=== PATIENT | male | born 1965 | race Caucasian/White ===

== ENCOUNTER 2020-03-23 14:50 | Emergency (ER) | payer BC ==
--- NOTE | 2020-03-23 16:05 | EDM.PDOC ---
ED HPI GENERAL MEDICAL PROBLEM - General Chief Complaint: General Stated Complaint: DIZZY AND WEAK Time Seen by Provider: 03/23/20 15:39 Source of Information: Reports: Patient, RN Notes Reviewed History Limitations: Reports: No Limitations - History of Present Illness INITIAL COMMENTS - FREE TEXT/NARRATIVE: Patient is a 55-year-old male who presents to the ED for evaluation of feeling weak and dizzy. Patient notes earlier today, he was mowing the yard at work, outside when he began to feel dizzy and weak, he states that the sun kind of seem to bother him, felt somewhat fatigued. He would characterize the dizziness as a lightheadedness more than a world spinning around him dizziness. The patient states that he was feeling fine up until these episodes. He did not hav e any sort of syncopal episode he is not having pain anywhere. Patient notes he did have a history of this many years ago, and he thinks that they adjusted some sort of medication and then he is not experienced this since then. Patient states that he is trying to lose a little bit of weight, so is changing his diet and exercise habits, and was wondering if this could have something to do with it as well. Blood pressure at time of triage mildly low at 105/66, he is afebrile at 98.0 F, O2 sats are slightly low, but he states he is a smoker and also has COPD. Patient is slightly tachycardic at 105 bpm at triage, and 101 on the EKG. - Related Data Allergies Allergy/AdvReac Type Severity Reaction Status Date / Time No Known Allergies Allergy Verified 03/23/20 15:36 Home Meds: Home Meds Lisinopril 0 mg PO DAILY 07/30/14 [History] Omeprazole [Prilosec] 20 mg PO DAILY 07/30/14 [History] Albuterol Sulfate [Proair Hfa] 8.5 gm IH 08/18/18 [History] Hydrocodone/Acetaminophen [Hydrocodone-Acetamin 5-325 mg] 1 - 2 each PO Q6HR PRN #20 tablet 08/18/18 [Rx] Penicillin V Potassium 500 mg PO Q6HR #40 tab 08/18/18 [Rx] Pravastatin [Pravachol] 20 mg PO DAILY 08/18/18 [History] Tiotropium [Spiriva] 18 mcg INH BID 08/18/18 [History] amLODIPine [Norvasc] 2.5 mg PO 08/18/18 [History] metFORMIN [Glucophage XR] 1,000 mg PO BIDMEALS 08/18/18 [History] Past Medical History Cardiovascular History: Reports: High Cholesterol, Hypertension, Other (See Below) Other Cardiovascular History: svt Respiratory History: Reports: Asthma, Bronchitis, Recurrent, COPD, Other (See Below) Other Respiratory History: emphysema Gastrointestinal History: Reports: GERD, Other (See Below) Other Gastrointestinal History: hernia Endocrine/Metabolic History: Reports: Diabetes, Type II Social & Family History - Family History Family Medical History: Noncontributory - Tobacco Use Smoking Status *Q: Current Every Day Smoker Years of Tobacco use: 44 Packs/Tins Daily: 1.5 - Caffeine Use Caffeine Use: Reports: Energy Drinks - Recreational Drug Use Recreational Drug Use: No ED ROS GENERAL - Review of Systems Review Of Systems: Comprehensive ROS is negative, except as noted in HPI. ED EXAM, GENERAL - Physical Exam Exam: See Below Exam Limited By: No Limitations General Appearance: Alert, WD/WN, No Apparent Distress Respiratory/Chest: No Respiratory Distress, Lungs Clear, Normal Breath Sounds, No Accessory Muscle Use, Chest Non-Tender Cardiovascular: Normal Peripheral Pulses, Regular Rate, Rhythm, No Edema, No Murmur Peripheral Pulses: 2+: Radial (L), Radial (R) GI/Abdominal: Normal Bowel Sounds, Soft, Non-Tender, No Distention, No Mass Extremities: Normal Inspection, Normal Capillary Refill Neurological: Alert, Oriented, Normal Cognition, No Motor/Sensory Deficits Psychiatric: Normal Affect, Normal Mood Skin Exam: Warm, Dry, Intact, Normal Color, No Rash EKG INTERPRETATION EKG Date: 03/23/20 Time: 15:26 Rhythm: NSR (sinus tachycardia) Rate (Beats/Min): 101 Hughes: Normal P-Wave: Present QRS: Normal ST-T: Normal QT: Normal Comparison: No Change EKG Interpretation Comments: No obvious ischemia or acute ST changes noted, reviewed by myself and Dr. Frances. Course - Vital Signs Last Recorded V/S: Last Vital Signs Temp 98.0 F 03/23/20 15:30 Pulse 105 H 03/23/20 15:30 Resp 18 03/23/20 15:30 BP 105/66 03/23/20 15:30 Pulse Ox 94 L 03/23/20 15:30 Orthostatic Blood Pressure [ 98/72 Standing] Orthostatic Blood Pressure [ 119/80 Sitting] Orthostatic Blood Pressure [ 111/79 Supine] - Orders/Labs/Meds Orders: Active Orders 24 hr Category Date Time Status EKG 12 Lead [EKG Documentation Completion] [RC] STAT Care 03/23/20 15:39 Active Orthostatic Vital Signs [RC] ASDIRECTED Care 03/23/20 15:55 Active CBC WITH AUTO DIFF [HEME] Stat Lab 03/23/20 16:05 Results Labs: Laboratory Tests 03/23/20 03/23/20 03/23/20 Range/Units 15:28 16:05 16:05 WBC 11.54 H (4.23-9.07) K/mm3 RBC 4.87 (4.63-6.08) M/mm3 Hgb 14.2 (13.7-17.5) gm/dl Hct 42.3 (40.1-51.0) % MCV 86.9 (79.0-92.2) fl MCH 29.2 (25.7-32.2) pg MCHC 33.6 (32.2-35.5) g/dl RDW Std Deviation 44.7 H (35.1-43.9) fL Plt Count 271 (163-337) K/mm3 MPV 10.1 (9.4-12.3) fl Neut % (Auto) 62.3 (34.0-67.9) % Lymph % (Auto) 26.3 (21.8-53.1) % Wayne % (Auto) 8.3 (5.3-12.2) % Eos % (Auto) 2.0 (0.8-7.0) Baso % (Auto) 0.7 (0.1-1.2) % Neut # (Auto) 7.19 H (1.78-5.38) K/mm3 Lymph # (Auto) 3.03 (1.32-3.57) K/mm3 Wayne # (Auto) 0.96 H (0.30-0.82) K/mm3 Eos # (Auto) 0.23 (0.04-0.54) K/mm3 Baso # (Auto) 0.08 (0.01-0.08) K/mm3 Sodium 137 (136-145) mEq/L Potassium 3.9 (3.5-5.1) mEq/L Chloride 101 (98-107) mEq/L Carbon Dioxide 24 (21-32) mEq/L Anion Gap 15.9 H (5-15) BUN 18 (7-18) mg/dL Creatinine 1.4 H (0.7-1.3) mg/dL Est Cr Clr Drug Dosing 67.38 mL/min Estimated GFR (MDRD) 53 (>60) mL/min BUN/Creatinine Ratio 12.9 L (14-18) Glucose 140 H (74-106) mg/dL POC Glucose 155 H (70-105) mg/dL Calcium 9.4 (8.5-10.1) mg/dL Total Bilirubin 0.2 (0.2-1.0) mg/dL AST 24 (15-37) U/L ALT 67 H (16-63) U/L Alkaline Phosphatase 37 L (46-116) U/L Total Protein 7.4 (6.4-8.2) g/dl Albumin 3.6 (3.4-5.0) g/dl Globulin 3.8 gm/dL Albumin/Globulin Ratio 1.0 (1-2) TSH 3rd Generation 0.833 (0.358-3.74) uIU/mL - Re-Assessments/Exams Free Text/Narrative Re-Assessment/Exam: 03/23/20 16:06 Patient presents to the ED for his dizziness/lightheadedness, EKG shows sinus tach with no other acute abnormalities appreciated. Blood pressure is mildly low, we will do orthostatic vital signs, get basic labs to include CBC, CMP, TSH for further evaluation. I do suspect the patient was slightly hypovolemic, or dehydrated causing his dizziness/lightheadedness. 03/23/20 17:05 Labs are within normal limits, creatinine is elevated 1.4, but review of his old labs demonstrate this is not a change. Nursing staff has been preoccupied with a more urgent patient, and have not been able to do orthostatics, they will perform these now. Workup today is most consistent with dehydration. 03/23/20 17:24 Patient's orthostatic vital signs are done, and do demonstrate slight orthostasis. Patient will be discharged home with recommendation to increase oral fluid intake at this time. Departure - Departure Time of Disposition: 17:25 Disposition: Home, Self-Care 01 Condition: Good Clinical Impression: Orthostatic hypotension, Dehydration - Discharge Information Instructions: Dehydration, Adult, [id number] Referrals: Ioana Mcclellan PA-C [Primary Care Provider] - Forms: ED Department Discharge Additional Instructions: You were evaluated in the ER today regarding your dizziness/lightheadedness. Laboratory evaluation was unremarkable, however you are slightly dehydrated, as your blood pressure did drop with blood pressure checks done in the ER. To remedy to this, you will need to go home, increase your oral fluid intake and try to drink some fluids like Powerade/Gatorade for further management. Highly recommend that prior to any sort of activities outside, you drink at least an 8 ounce glass of water, to try to prevent further dehydration and dizziness issues. Please do not hesitate to return to the ER if your symptoms should change or worsen. Sepsis Event Note (ED) - Evaluation Sepsis Screening Result: No Definite Risk - Focused Exam Vital Signs: Vital Signs Temp Pulse Resp BP Pulse Ox 03/23/20 15:30 98.0 F 105 H 18 105/66 94 L - My Orders Last 24 Hours: My Active Orders 03/23/20 15:39 EKG 12 Lead [EKG Documentation Completion] [RC] STAT 03/23/20 15:55 Orthostatic Vital Signs [RC] ASDIRECTED 03/23/20 16:05 CBC WITH AUTO DIFF [HEME] Stat - Assessment/Plan Last 24 Hours: My Active Orders 03/23/20 15:39 EKG 12 Lead [EKG Documentation Completion] [RC] STAT 03/23/20 15:55 Orthostatic Vital Signs [RC] ASDIRECTED 03/23/20 16:05 CBC WITH AUTO DIFF [HEME] Stat
== END 2020-03-23 17:35 | disposition home or self-care (01) ==
LOC: JD.ED 14:50
DX: E86.0 Dehydration (principal); I95.1 Orthostatic hypotension; I10 Essential (primary) hypertension; E78.00 Pure hypercholesterolemia, unspecified; K21.9 Gastro-esophageal reflux disease without esophagitis; J43.9 Emphysema, unspecified; E11.9 Type 2 diabetes mellitus without complications; F17.210 Nicotine dependence, cigarettes, uncomplicated; R00.0 Tachycardia, unspecified; Z79.899 Other long term (current) drug therapy; Z79.84 Long term (current) use of oral hypoglycemic drugs
CPT/HCPCS: 36415; 80053; 82962; 84443; 85025; 93005; 99285-25

== ENCOUNTER 2020-05-25 09:13 | Emergency (ER) | payer BC ==
--- NOTE | 2020-05-25 09:33 | EDM.PDOC ---
ED HPI GENERAL MEDICAL PROBLEM - General Chief Complaint: Respiratory Problem Stated Complaint: COUGH/CONGESTION/SORE THROAT Time Seen by Provider: 05/25/20 09:46 Source of Information: Reports: Patient History Limitations: Reports: No Limitations - History of Present Illness INITIAL COMMENTS - FREE TEXT/NARRATIVE: 55-year-old male presents to the ED for evaluation of cough x3 days. He states he is not bringing up any sputum. States it is thick and sticky mucus and will not come up. Patient smokes 2 packs a day and has for the last 30 years. O2 sats appreciated by triage nurse at 92% on room air. Patient states his has had an upper respiratory tract infection with diagnosis of pneumonia within the last week. He feels he is contracted infection from her. He admits to paroxysmal cough. Appetite is good. Not aware of any fever or chills although he does feel slightly warm to palpation. No pain in his ears. He is aware of dyspnea worsened with exertion compared to his norm. No known exposure to COVID-19 illness. Patient carries a diagnosis of COPD and type 2 diabetes. Patient reports his albuterol inhaler does give him some relief of the cough and dyspnea but not his good is normal. Onset: Gradual Onset Date: 05/22/20 Duration: Day(s):, Getting Worse (Increased shortness of breath on exertion and paroxysmal) Location: Reports: Chest (Dyspnea on exertion with paroxysmal cough. Minimal sputum production) Quality: Reports: Other Severity: Moderate (Feels short of breath.) Improves with: Reports: Rest Worsens with: Reports: Other (Flat and coughing.), Movement (He states dyspnea on exertion which) Associated Symptoms: Reports: Cough, cough w sputum, Shortness of Breath. Denies: No Other Symptoms ( is unusual for him.), Confusion, Chest Pain, Diaphoresis (Minimal sputum production.), Fever/Chills, Headaches, Loss of Appetite, Malaise, Nausea/Vomiting, Rash, Seizure, Syncope, Weakness Treatments CIRCULAR DISTRIBUTOR: Reports: Other (see below) (None.) - Related Data Allergies Allergy/AdvReac Type Severity Reaction Status Date / Time No Known Allergies Allergy Verified 03/23/20 15:36 Home Meds: Home Meds Lisinopril 0 mg PO DAILY 07/30/14 [History] Omeprazole [Prilosec] 20 mg PO DAILY 07/30/14 [History] Albuterol Sulfate [Proair Hfa] 8.5 gm IH 08/18/18 [History] Hydrocodone/Acetaminophen [Hydrocodone-Acetamin 5-325 mg] 1 - 2 each PO Q6HR PRN #20 tablet 08/18/18 [Rx] Penicillin V Potassium 500 mg PO Q6HR #40 tab 08/18/18 [Rx] Pravastatin [Pravachol] 20 mg PO DAILY 08/18/18 [History] Tiotropium [Spiriva] 18 mcg INH BID 08/18/18 [History] amLODIPine [Norvasc] 2.5 mg PO 08/18/18 [History] metFORMIN [Glucophage XR] 1,000 mg PO BIDMEALS 08/18/18 [History] Doxycycline [Vibra-Tabs] 100 mg PO Q12HR #20 tab 05/25/20 [Rx] Hydrocodone/Chlorphen P-Stirex [Hydrocodone-Chlorphen ER Susp] 5 ml PO Q12H PRN #60 ml 05/25/20 [Rx] Past Medical History Cardiovascular History: Reports: High Cholesterol, Hypertension, Other (See Below) Other Cardiovascular History: svt Respiratory History: Reports: Asthma, Bronchitis, Recurrent, COPD, Other (See Below) Other Respiratory History: emphysema--currently smoking 2 packs of cigarettes per day. Gastrointestinal History: Reports: GERD, Other (See Below) Other Gastrointestinal History: hernia Endocrine/Metabolic History: Reports: Diabetes, Type II (Controlled with diet and metformin 1000mg BID .) Social & Family History - Family History Family Medical History: Noncontributory - Caffeine Use Caffeine Use: Reports: Energy Drinks - Living Situation & Occupation Living situation: Reports: Occupation: Employed [employer] [facility] - Review of Systems Review Of Systems: See Below Constitutional: Denies: Fever, Chills, Malaise, Weakness, Fatigue, Night Sweats, Decreased Appetite, Weight Loss HEENT: Reports: Glasses, Throat Pain. Denies: Hearing Loss, Nosebleed, Nose Pain (Filed.), Rhinitis, Sinus Problem, Throat Swelling, Vertigo Respiratory: Reports: Shortness of Breath, Wheezing, Cough, Sputum (Occasional sputum production white in color). Denies: Pleuritic Chest Pain Cardiovascular: Reports: Chest Pain, Blood Pressure Problem (Chest pain only from coughing.), Dyspnea on Exertion (Patient reports this is chronic for him but it is worse the last 3 days.). Denies: Claudication, Edema, Lightheadedness, Orthopnea, Palpitations Endocrine: Reports: Fatigue GI/Abdominal: Reports: No Symptoms : Reports: No Symptoms Musculoskeletal: Reports: No Symptoms Skin: Reports: No Symptoms Neurological: Reports: No Symptoms Psychiatric: Reports: No Symptoms Hematologic/Lymphatic: Reports: No Symptoms Immunologic: Reports: No Symptoms ED EXAM, GENERAL - Physical Exam Exam: See Below Exam Limited By: No Limitations General Appearance: Alert, WD/WN, No Apparent Distress, Other (Temperature is 36.1. Patient feels very minimally warm palpation. Heart rate is 97. Respiratory is 18 with O2 sats of 92% room air. BP elevated 1 5896.) Eye Exam: Bilateral Eye: Normal Inspection, PERRL Ears: Normal TMs Throat/Mouth: Normal Lips, Normal Teeth, Other (Mild erythema of the throat and uvula secondary to smoking. No signs of active infection.) Head: Atraumatic, Normocephalic Neck: Normal Inspection, Supple, Non-Tender, Full Range of Motion. No: Carotid Bruit, Lymphadenopathy (L), Lymphadenopathy (R) Respiratory/Chest: Decreased Breath Sounds (Wheezing posterior bases bilaterally. Decreased breath sounds to the lower 40% of lung hedrick bilaterally.), Rhonchi (Scattered rhonchi upper anterior chest. These clear with coughing.), Wheezing. No: Lungs Clear, Normal Breath Sounds Cardiovascular: Regular Rate, Rhythm, No Edema, No Gallop, No Murmur, No Rub. No: Normal Peripheral Pulses Peripheral Pulses: 1+: Posterior Tibial (L), Posterior Tibial (R), Dorsalis Pedis (L), Dorsalis Pedis (R), 3+: Carotid (L), Carotid (R) GI/Abdominal: Normal Bowel Sounds, Soft, Non-Tender, No Organomegaly, No Mass, Pelvis Stable, Other (Mildly obese.) Back Exam: Normal Inspection, Full Range of Motion. No: CVA Tenderness (L), CVA Tenderness (R) Extremities: Normal Inspection, Normal Range of Motion, Non-Tender, No Pedal Edema Neurological: Alert, Oriented, CN II-XII Intact, Normal Cognition, Normal Gait Psychiatric: Normal Affect, Normal Mood Skin Exam: Warm, Dry, Intact, Normal Color, No Rash Course - Vital Signs Last Recorded V/S: Last Vital Signs Temp 36.1 C 05/25/20 09:25 Pulse 97 05/25/20 09:25 Resp 18 05/25/20 09:25 BP 158/96 H 05/25/20 09:25 Pulse Ox 92 L 05/25/20 09:25 - Orders/Labs/Meds Labs: Laboratory Tests 05/25/20 Range/Units 10:00 SARS-CoV-2 RNA (GIL) Negative (NEGATIVE) - Radiology Interpretation Free Text/Narrative:: 55-year-old male presents to the ED with a history of paroxysmal cough and chest congestion for the last 3 days. He does not believe that he has had a fever at home. States productive cough but sputum is thick and tenacious and difficult to expectorate. Denies any hemoptysis. He carries a diagnosis of COPD. He continues to smoke cigarettes 2 packs/day. The O2 sats in the ED are 92% on room air. Examination reveals no active upper respiratory infection. Decreased air entry to both posterior lung hedrick by 40% with bilateral expiratory wheezes in the bases. Few rhonchi upper anterior chest that clear with co ughing. Plan patient will be screened for COVID-19 illness. I am not going to do labs at this point time is clinically I do not think he has COVID-19. Chest x-ray will be done portably. - Re-Assessments/Exams Free Text/Narrative Re-Assessment/Exam: 05/25/20 10:10: Chest x-ray done portably is unchanged from previous films. It reveals mildly hyperinflated lungs bilaterally with bilateral prominence of the pulmonary arteries suggesting mild pulmonary hypertension. No parenchymal infiltrates appreciated. Cardiac silhouette within normal limits. There is evidence of previous multiple old rib fractures which appear to be healed well. 05/25/20 11:56 19 screen came back negative. Patient will therefore be discharged home on doxycycline 100 mg twice daily for 10 days due to acute bronchitis with his reporting pneumonia. History of COPD due to cigarette smoking. We will also give him Tussionex cough syrup 5 mils every 12 hours. For cough relief. Primarily to be used at bedtime so that he can sleep. Note given to excuse him from work today and tomorrow. Departure - Departure Time of Disposition: 11:52 Disposition: Home, Self-Care 01 Condition: Fair Clinical Impression: COPD (chronic obstructive pulmonary disease) with emphysema Qualifiers: Emphysema type: panlobular Qualified Code(s): J43.1 - Panlobular emphysema Acute bronchitis Qualifiers: Bronchitis organism: unspecified organism Qualified Code(s): J20.9 - Acute bronchitis, unspecified - Discharge Information *PRESCRIPTION DRUG MONITORING PROGRAM REVIEWED*: Not Applicable *COPY OF PRESCRIPTION DRUG MONITORING REPORT IN PATIENT EMELY: Not Applicable Prescriptions: Hydrocodone/Chlorphen P-Stirex [Hydrocodone-Chlorphen ER Susp] 5 ml PO Q12H PRN #60 ml PRN Reason: Cough relief Doxycycline [Vibra-Tabs] 100 mg PO Q12HR #20 tab Instructions: Chronic Obstructive Pulmonary Disease, [id number], Acute Bronchitis, Adult Referrals: Ioana Mcclellan PA-C [Primary Care Provider] - Forms: ED Department Discharge, ED Return to Work/School Form Additional Instructions: Evaluation in the emergency room this morning in regards to gradually worsening productive cough over the last 3 days. No noted fever. was recently diagnosed with pneumonia. By history you have chronic obstructive pulmonary disease with emphysema from cigarette smoking. COVID-19 screen was carried out in the ED and is negative. Chest x-ray is negative for pneumonia at this time. Diagnosis is acute bronchitis. Treatment is antibiotic doxycycline 100 mg twice daily for the next 10 days to clear up chest infection before can develop into pneumonia. Cough syrup is Penntuss of syrup 5 mils every 12 hours as needed for relief of cough. Primarily to be used at bedtime about an hour before going to bed for cough relief. Sepsis Event Note (ED) - Focused Exam Vital Signs: Vital Signs Temp Pulse Resp BP Pulse Ox 05/25/20 09:25 36.1 C 97 18 158/96 H 92 L
--- NOTE | 2020-05-25 10:21 | CR ---
Chest: Portable view of the chest was obtained. Comparison: Prior chest x-ray of 07/30/14. Multiple old right-sided rib fractures are seen which appear healed. Lungs are clear with no acute parenchymal change. Heart size and mediastinum are normal. Impression: 1. Nothing acute is appreciated on portable chest x-ray. Diagnostic code #2 This report was dictated in MDT
== END 2020-05-25 11:55 | disposition home or self-care (01) ==
LOC: JD.ED 09:13
DX: J43.1 Panlobular emphysema (principal); J20.9 Acute bronchitis, unspecified; E78.00 Pure hypercholesterolemia, unspecified; I10 Essential (primary) hypertension; K21.9 Gastro-esophageal reflux disease without esophagitis; E11.9 Type 2 diabetes mellitus without complications; F17.210 Nicotine dependence, cigarettes, uncomplicated; E66.9 Obesity, unspecified; Z68.28 Body mass index [BMI] 28.0-28.9, adult; Z79.899 Other long term (current) drug therapy; Z79.84 Long term (current) use of oral hypoglycemic drugs; Z20.828 Contact with and (suspected) exposure to other viral communicable diseases
CPT/HCPCS: 71045; 71045-26; 99283; 99285-25; U0002

== ENCOUNTER 2020-10-30 12:42 | Emergency (ER) | payer BC ==
--- NOTE | 2020-10-30 13:11 | EDM.PDOC ---
ED HPI GENERAL MEDICAL PROBLEM - General Chief Complaint: ENT Problem Stated Complaint: DENTAL COMPLAINT Time Seen by Provider: 10/30/20 12:50 Source of Information: Reports: Patient, RN Notes Reviewed - History of Present Illness INITIAL COMMENTS - FREE TEXT/NARRATIVE: 55 yr old male comes in with L upper jaw dental pain. He has had occasional dental problems off and on. Admits he has not seen a dentist for a very long time. Increasing pain L upper post molar over the past 10 days. Becoming more pressure sensative and now even at rest. No fever or chills. Left Tooth/Teeth Pain Score (Numeric/FACES): 4 - Related Data Allergies Allergy/AdvReac Type Severity Reaction Status Date / Time No Known Allergies Allergy Verified 10/30/20 12:50 Home Meds: Home Meds Lisinopril 0 mg PO DAILY 07/30/14 [History] Omeprazole [Prilosec] 20 mg PO DAILY 07/30/14 [History] Albuterol Sulfate [Proair Hfa] 8.5 gm IH 08/18/18 [History] Hydrocodone/Acetaminophen [Hydrocodone-Acetamin 5-325 mg] 1 - 2 each PO Q6HR PRN #20 tablet 08/18/18 [Rx] Penicillin V Potassium 500 mg PO Q6HR #40 tab 08/18/18 [Rx] Pravastatin [Pravachol] 20 mg PO DAILY 08/18/18 [History] Tiotropium [Spiriva] 18 mcg INH BID 08/18/18 [History] amLODIPine [Norvasc] 2.5 mg PO 08/18/18 [History] metFORMIN [Glucophage XR] 1,000 mg PO BIDMEALS 08/18/18 [History] Doxycycline [Vibra-Tabs] 100 mg PO Q12HR #20 tab 05/25/20 [Rx] Hydrocodone/Chlorphen P-Stirex [Hydrocodone-Chlorphen ER Susp] 5 ml PO Q12H PRN #60 ml 05/25/20 [Rx] Amoxicillin 500 mg PO QID #30 capsule 10/30/20 [Rx] Past Medical History Cardiovascular History: Reports: High Cholesterol, Hypertension, Other (See Below) Other Cardiovascular History: svt Respiratory History: Reports: Asthma, Bronchitis, Recurrent, COPD, Other (See Below) Other Respiratory History: emphysema--currently smoking 2 packs of cigarettes per day. Gastrointestinal History: Reports: GERD, Other (See Below) Other Gastrointestinal History: hernia Endocrine/Metabolic History: Reports: Diabetes, Type II Social & Family History - Family History Family Medical History: No Pertinent Family History - Tobacco Use Tobacco Use Status *Q: Current Every Day Tobacco User Years of Tobacco use: 40 Packs/Tins Daily: 1.5 - Caffeine Use Caffeine Use: Reports: Coffee - Recreational Drug Use Recreational Drug Use: No - Living Situation & Occupation Living situation: Reports: Occupation: Employed ED ROS ENT - Review of Systems Review Of Systems: See Below HEENT: Reports: Dental Pain Respiratory: Reports: No Symptoms Cardiovascular: Reports: No Symptoms GI/Abdominal: Reports: No Symptoms Musculoskeletal: Reports: No Symptoms Skin: Reports: No Symptoms Neurological: Reports: No Symptoms ED EXAM, ENT - Physical Exam Exam: See Below General Appearance: Alert, No Apparent Distress Mouth/Throat: Normal Oropharynx, Dental Pain (Mildly tender L upper post molar, no visible swelling, no drainage, has an old looking filling) Head: No: Facial Swelling, Facial Tenderness Neck: Supple. No: Lymphadenopathy (L), Lymphadenopathy (R) Respiratory/Chest: No Respiratory Distress Neurological: Alert, Oriented Skin: Warm, Dry, Normal Color, No Rash. No: Erythema Course - Vital Signs Last Recorded V/S: Last Vital Signs Temp 97.6 F 10/30/20 12:50 Pulse 99 10/30/20 12:50 Resp 20 10/30/20 12:50 BP 155/95 H 10/30/20 12:50 Pulse Ox 92 L 10/30/20 12:50 - Re-Assessments/Exams Free Text/Narrative Re-Assessment/Exam: 10/30/20 13:48 Suspect he is cavitating under his old filling, discharge instr. as documented. Departure - Departure Time of Disposition: 13:06 Disposition: Home, Self-Care 01 Condition: Fair Clinical Impression: Pain, dental - Discharge Information Prescriptions: Amoxicillin 500 mg PO QID #30 capsule Instructions: Acute Pain, Adult Referrals: Ioana Mcclellan PA-C [Primary Care Provider] - Forms: ED Department Discharge Additional Instructions: Amoxicillin 500 mg 4 times daily or 1000 mg (2 capsules) twice daily for 1 week or until gone. [facility] Go there now as they are only upon until 2:00 today. Continue aleve a needed. You may also safely take tylenol in between doses of aleve if needed for extra pain relief. See dentist as needed. Sepsis Event Note (ED) - Evaluation Sepsis Screening Result: No Definite Risk - Focused Exam Vital Signs: Vital Signs Temp Pulse Resp BP Pulse Ox 10/30/20 12:50 97.6 F 99 20 155/95 H 92 L
== END 2020-10-30 13:15 | disposition home or self-care (01) ==
LOC: JD.ED 12:42
DX: K08.89 Other specified disorders of teeth and supporting structures (principal); E78.00 Pure hypercholesterolemia, unspecified; I10 Essential (primary) hypertension; J44.9 Chronic obstructive pulmonary disease, unspecified; E11.9 Type 2 diabetes mellitus without complications; K21.9 Gastro-esophageal reflux disease without esophagitis; F17.210 Nicotine dependence, cigarettes, uncomplicated; Z79.84 Long term (current) use of oral hypoglycemic drugs; Z79.899 Other long term (current) drug therapy
CPT/HCPCS: 99282; 99283

== ENCOUNTER 2020-11-10 23:45 | Emergency (ER) | payer BC ==
--- NOTE | 2020-11-11 00:40 | EDM.PDOC ---
ED HPI GENERAL MEDICAL PROBLEM - General Chief Complaint: ENT Problem Stated Complaint: TOOTHACHE Time Seen by Provider: 11/11/20 00:39 - History of Present Illness INITIAL COMMENTS - FREE TEXT/NARRATIVE: 55-year-old male returns to the emergency room with dental pain. This is been an ongoing problem. He was seen several weeks ago here. He has not been able to get into a dentist here locally because he cannot get an appointment until February he is trying to get seen sooner in [place]. He did well on antibiotics however the pain just keeps returning after he stops the antibiotics. He states he has not slept in 2 nights now. Not had any fevers or chills however when the pain gets bad it does radiate towards his left ear. The tooth or teeth involved his left upper as it was several weeks ago. tooth Pain Score (Numeric/FACES): 10 - Related Data Allergies Allergy/AdvReac Type Severity Reaction Status Date / Time No Known Allergies Allergy Verified 11/11/20 00:03 Home Meds: Home Meds Lisinopril 0 mg PO DAILY 07/30/14 [History] Omeprazole [Prilosec] 20 mg PO DAILY 07/30/14 [History] Albuterol Sulfate [Proair Hfa] 8.5 gm IH 08/18/18 [History] Hydrocodone/Acetaminophen [Hydrocodone-Acetamin 5-325 mg] 1 - 2 each PO Q6HR PRN #20 tablet 08/18/18 [Rx] Penicillin V Potassium 500 mg PO Q6HR #40 tab 08/18/18 [Rx] Pravastatin [Pravachol] 20 mg PO DAILY 08/18/18 [History] Tiotropium [Spiriva] 18 mcg INH BID 08/18/18 [History] amLODIPine [Norvasc] 2.5 mg PO 08/18/18 [History] metFORMIN [Glucophage XR] 1,000 mg PO BIDMEALS 08/18/18 [History] Doxycycline [Vibra-Tabs] 100 mg PO Q12HR #20 tab 05/25/20 [Rx] Hydrocodone/Chlorphen P-Stirex [Hydrocodone-Chlorphen ER Susp] 5 ml PO Q12H PRN #60 ml 05/25/20 [Rx] Amoxicillin 500 mg PO QID #30 capsule 10/30/20 [Rx] Acetaminophen/HYDROcodone [[place] 325-5 MG] 1 - 2 tab PO Q6H PRN #15 tablet 11/11/20 [Rx] Amoxicillin 875 mg PO BID #20 tablet 11/11/20 [Rx] Past Medical History Cardiovascular History: Reports: High Cholesterol, Hypertension, Other (See Below) Other Cardiovascular History: svt Respiratory History: Reports: Asthma, Bronchitis, Recurrent, COPD, Other (See Below) Other Respiratory History: emphysema--currently smoking 2 packs of cigarettes per day. Gastrointestinal History: Reports: GERD, Other (See Below) Other Gastrointestinal History: hernia Endocrine/Metabolic History: Reports: Diabetes, Type II Social & Family History - Family History Family Medical History: No Pertinent Family History - Tobacco Use Tobacco Use Status *Q: Current Every Day Tobacco User Years of Tobacco use: 40 Packs/Tins Daily: 1.5 - Caffeine Use Caffeine Use: Reports: Coffee - Recreational Drug Use Recreational Drug Use: No - Living Situation & Occupation Living situation: Reports: Occupation: Employed ED ROS ENT - Review of Systems Review Of Systems: See Below Constitutional: Reports: No Symptoms HEENT: Reports: Dental Pain. Denies: Ear Pain, Eye Pain, Sinus Problem, Throat Pain Respiratory: Reports: No Symptoms GI/Abdominal: Reports: No Symptoms ED EXAM, ENT - Physical Exam Exam: See Below Exam Limited By: No Limitations General Appearance: Alert, No Apparent Distress Eye Exam: Bilateral Eye: Normal Inspection Ears: Normal External Exam, Normal Canal, Hearing Grossly Normal, Normal TMs Nose: Normal Inspection, Normal Mucousa, No Blood Mouth/Throat: Normal Lips, Normal Oropharynx, Dental Pain (The left rear upper 2 teeth seem to be the most involved they are tender with palpation the most posterior 1 has a filling on it. The gums are minimally erythematous and swollen.) Head: Atraumatic, Normocephalic Neck: No: Lymphadenopathy (L), Lymphadenopathy (R) Respiratory/Chest: No Respiratory Distress, Lungs Clear, Normal Breath Sounds Cardiovascular: Regular Rate, Rhythm, No Edema, No Murmur Course - Vital Signs Last Recorded V/S: Last Vital Signs Temp 36.2 C 11/10/20 23:58 Pulse 110 H 11/10/20 23:58 Resp 18 11/10/20 23:58 BP 159/105 H 11/10/20 23:58 Pulse Ox 92 L 03/17/21 23:58 - Orders/Labs/Meds Meds: Medications Discontinued Medications Generic Name Dose Route Start Last Admin Trade Name Jaymie PRN Reason Stop Dose Admin Hydrocodone Bitart/Acetaminophen 2 tab 11/11/20 00:52 Acetaminophen/Hydrocodone 325-5 Mg Tab PO 11/11/20 00:53 ONETIME ONE Amoxicillin 1,000 mg 11/11/20 00:52 Amoxicillin 500 Mg Cap PO 11/11/20 00:53 ONETIME ONE Departure - Departure Time of Disposition: 01:05 Disposition: Home, Self-Care 01 Clinical Impression: Pain, dental - Discharge Information Referrals: Ioana Mcclellan PA-C [Primary Care Provider] - Forms: ED Department Discharge, ED Return to Work/School Form Additional Instructions: Return to the emergency room with any questions problems or worsening symptoms. However you must see a dentist for this problem to be taken care of. You have been started on amoxicillin. Take as directed until all gone. You have been given some pain medication hydrocodone acetaminophen. 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 Sepsis Event Note (ED) - Evaluation Sepsis Screening Result: No Definite Risk - Focused Exam Vital Signs: Vital Signs Temp Pulse Resp BP Pulse Ox 11/10/20 23:58 36.2 C 110 H 18 159/105 H 92 L
[2020-11-11] MEDS ORDERED: Amoxicillin 500 MG Cap PO ONE (00:52)
[2020-11-11] MEDS ORDERED: Acetaminophen/HYDROcodone 325-5 MG Tab PO ONE (00:52)
== END 2020-11-11 01:15 | disposition home or self-care (01) ==
LOC: JD.ED 23:45
DX: K08.89 Other specified disorders of teeth and supporting structures (principal); E78.00 Pure hypercholesterolemia, unspecified; I10 Essential (primary) hypertension; J43.9 Emphysema, unspecified; K21.9 Gastro-esophageal reflux disease without esophagitis; E11.9 Type 2 diabetes mellitus without complications; F17.210 Nicotine dependence, cigarettes, uncomplicated; Z79.84 Long term (current) use of oral hypoglycemic drugs; Z79.899 Other long term (current) drug therapy
CPT/HCPCS: 99282; A9270; 99283

== ENCOUNTER 2021-07-02 20:03 | Emergency (ER) | payer SELFPAY ==
[2021-07-02] MEDS ORDERED: Lidocaine 1% 10 ML MDV INJECT ONE (20:19)
[2021-07-02] MEDS ORDERED: Diphtheria,Pertussis(Acell),Tetanus Vaccine 0.5 ML Syringe IM ONE (20:24)
--- NOTE | 2021-07-02 20:24 | EDM.PDOC ---
ED HPI GENERAL MEDICAL PROBLEM - General Chief Complaint: Laceration Stated Complaint: LT POINTER FINGER LAC Time Seen by Provider: 07/02/21 20:06 Source of Information: Reports: Patient, RN Notes Reviewed History Limitations: Reports: No Limitations - History of Present Illness INITIAL COMMENTS - FREE TEXT/NARRATIVE: Patient is a 56-year-old male who presents to the ER for evaluation of his finger laceration. States he was trying to cut open a walnut with a recently sharpened knife, when the knife slipped off of the walnut and ended up lacerating the posterior PIP of his left index finger. All range of motion is intact. No numbness or tingling distal to the injury. Bleeding is under control. Laceration itself is about 1.5 cm in length. Patient denies any other sick-like symptoms, fever/chills, cough/shortness of breath, nausea/vomiting/diarrhea. - Related Data Allergies Allergy/AdvReac Type Severity Reaction Status Date / Time No Known Allergies Allergy Verified 07/02/21 20:12 Home Meds: Home Meds Lisinopril 2.5 mg PO DAILY 07/30/14 [History] Omeprazole [Prilosec] 20 mg PO DAILY 07/30/14 [History] Albuterol Sulfate [Proair Hfa] 8.5 gm IH ASDIRECTED 08/18/18 [History] Pravastatin [Pravachol] 20 mg PO DAILY 08/18/18 [History] metFORMIN [Glucophage XR] 1,000 mg PO BIDMEALS 08/18/18 [History] buPROPion [buPROPion XL] 150 mg PO BEDTIME 07/02/21 [History] Past Medical History HEENT History: Reports: Impaired Vision Cardiovascular History: Reports: High Cholesterol, Hypertension, Other (See Below) Other Cardiovascular History: svt Respiratory History: Reports: Asthma, Bronchitis, Recurrent, COPD Other Respiratory History: emphysema Gastrointestinal History: Reports: GERD, Other (See Below) Other Gastrointestinal History: hernia Endocrine/Metabolic History: Reports: Diabetes, Type II - Past Surgical History HEENT Surgical History: Reports: Oral Surgery Social & Family History - Family History Family Medical History: No Pertinent Family History - Tobacco Use Tobacco Use Status *Q: Former Tobacco User Used Tobacco, but Quit: Yes Month/Year Tobacco Last Used: 05/2021 - Caffeine Use Caffeine Use: Reports: Coffee - Recreational Drug Use Recreational Drug Use: No - Living Situation & Occupation Living situation: Reports: Occupation: Employed ED ROS GENERAL - Review of Systems Review Of Systems: Comprehensive ROS is negative, except as noted in HPI. ED EXAM, SKIN/RASH Exam: See Below Exam Limited By: No Limitations General Appearance: Alert, WD/WN, No Apparent Distress Respiratory/Chest: No Respiratory Distress, Lungs Clear, Normal Breath Sounds, No Accessory Muscle Use, Chest Non-Tender Cardiovascular: Normal Peripheral Pulses, Regular Rate, Rhythm, No Edema Peripheral Pulses: 2+: Radial (L), Radial (R) Extremities: Normal Range of Motion, Normal Capillary Refill Neurological: Alert, Oriented, Normal Cognition, No Motor/Sensory Deficits Psychiatric: Normal Affect, Normal Mood Skin: Warm, Dry, Normal Color, No Rash, Wound/Incision (1.5cm linear laceration to the posterior aspect of left index finger's PIP) ED SKIN PROCEDURES - Laceration/Wound Repair Left Posterior Digit - 2nd (Index) Appearance: Subcutaneous, Clean Distal NVT: Neuro & Vascular Intact, No Tendon Injury Anesthetic Type: Local Local Anesthesia - Lidocaine (Xylocaine): 1% Plain Local Anesthetic Volume: 3cc Skin Prep: Chlorhexidine (Hibiciens), Saline Exploration/Debridement/Repair: Wound Explored, In a Bloodless Field, Explored to Base, No Foreign Material Found Closed with: Sutures Lac/Wound length In cm: 1.5 Suture Size: 4-0 # of Sutures: 4 Suture Type: Prolene, Interrupted, Simple Sterile Dressing Applied: Nurse Tetanus Status Addressed: Yes (updated at today's visit) Complications: No Course - Vital Signs Last Recorded V/S: Last Vital Signs Temp 98.3 F 07/02/21 20:11 Pulse 81 07/02/21 20:11 Resp 16 07/02/21 20:11 BP 151/99 H 07/02/21 20:11 Pulse Ox 95 07/02/21 20:11 - Orders/Labs/Meds Orders: Active Orders 24 hr Category Date Time Status Vaccine to be Administered/Admin Charge [RC] ASDIRECTED Care 07/02/21 20:24 Ordered Meds: Medications Discontinued Medications Generic Name Dose Route Start Last Admin Trade Name Freq PRN Reason Stop Dose Admin Diphtheria/Tetanus/Acell Pertussis 0.5 ml 07/02/21 20:24 07/02/21 20:36 Diphtheria,Pertussis(Acell),Tetanus Vaccine 0.5 Ml Syringe IM 07/02/21 20:25 0.5 ml .ONCE ONE Administration Lidocaine HCl 10 ml 07/02/21 20:19 07/02/21 20:33 Lidocaine 1% 10 Ml Mdv INJECT 07/02/21 20:20 10 ml ONETIME ONE Administration Departure - Departure Time of Disposition: 20:25 Disposition: Home, Self-Care 01 Condition: Good Clinical Impression: Laceration of index finger Qualifiers: Encounter type: initial encounter Damage to nail status: without damage Foreign body presence: without foreign body Laterality: left Qualified Code(s): S61.211A - Laceration without foreign body of left index finger without damage to nail, initial encounter - Discharge Information *PRESCRIPTION DRUG MONITORING PROGRAM REVIEWED*: No *COPY OF PRESCRIPTION DRUG MONITORING REPORT IN PATIENT EMELY: No Instructions: Sutures, Sujatha, or Adhesive Wound Closure, [id number] Referrals: Ioana Mcclellan PA-C [Primary Care Provider] - Forms: ED Department Discharge Additional Instructions: You have been evaluated in the ED for your laceration. Sutures will need to stay in for 10 to 14 days. You may return to the ED or any clinic for removal. Your tetanus booster was updated at today's visit, this should be good for another 10 years. Please keep this area clean and dry, you may cleanse with regular soap and water. No vigorous scrubbing. Please try to avoid submerging the affected area in water for prolonged periods of time until the sutures are removed. Watch out for signs of infection like increased redness, swelling, pain at the laceration site, or if you should develop any fevers or chills. Please return to ED if your symptoms change or worsen. Sepsis Event Note (ED) - Evaluation Sepsis Screening Result: No Definite Risk - Focused Exam Vital Signs: Vital Signs Temp Pulse Resp BP Pulse Ox 07/02/21 20:11 98.3 F 81 16 151/99 H 95 - My Orders Last 24 Hours: My Active Orders 07/02/21 20:24 Vaccine to be Administered/Admin Charge [RC] ASDIRECTED - Assessment/Plan Last 24 Hours: My Active Orders 07/02/21 20:24 Vaccine to be Administered/Admin Charge [RC] ASDIRECTED
== END 2021-07-02 20:47 | disposition home or self-care (01) ==
LOC: JD.ED 20:03
DX: S61.211A Laceration without foreign body of left index finger without damage to nail, initial encounter (principal); E78.00 Pure hypercholesterolemia, unspecified; I10 Essential (primary) hypertension; Z79.899 Other long term (current) drug therapy; Z87.891 Personal history of nicotine dependence; Z23 Encounter for immunization; W26.0XXA Contact with knife, initial encounter
CPT/HCPCS: 12001; 90471; 90715; 99282-25; 99283

== ENCOUNTER 2023-08-23 08:54 | Day surgery (SDC) | payer OTHER ==
[~2023-08-23 08:54] MED LIST: Lactated Ringers 1,000 ML IV SCH; Sodium Chloride 0.9% 10 ML Syringe FLUSH PRN; Sodium Chloride 0.9% 10 ML Syringe FLUSH SCH
[2023-08-23] MEDS ORDERED: Midazolam 1 MG/ML 2 ML SDV ONE (11:26)
[2023-08-23] MEDS ORDERED: Propofol 200 MG/20 ML SDV ONE ×2 (11:26→12:13)
[2023-08-23] MEDS ORDERED: fentaNYL 100 MCG/2 ML SDV ONE (11:29)
[2023-08-23] MEDS ORDERED: Lidocaine 2% 5 ML SDV ONE (11:48)
[2023-08-23] MEDS ORDERED: ePHEDrine 50 MG/ML SDV ONE (12:30)
== END 2023-08-23 13:45 | disposition home or self-care (01) ==
LOC: JD.SDS 08:54
PROVIDERS: ATTEND Student in an Organized Health Care Education/Training Program
DX: Z12.11 Encounter for screening for malignant neoplasm of colon (principal); K22.70 Barrett's esophagus without dysplasia; K20.90 Esophagitis, unspecified without bleeding; K44.9 Diaphragmatic hernia without obstruction or gangrene; I10 Essential (primary) hypertension; J44.9 Chronic obstructive pulmonary disease, unspecified; E11.9 Type 2 diabetes mellitus without complications; F32.A Depression, unspecified; F41.9 Anxiety disorder, unspecified; K21.9 Gastro-esophageal reflux disease without esophagitis; E78.00 Pure hypercholesterolemia, unspecified; F17.210 Nicotine dependence, cigarettes, uncomplicated; Z79.82 Long term (current) use of aspirin; Z79.84 Long term (current) use of oral hypoglycemic drugs; Z79.899 Other long term (current) drug therapy
CPT/HCPCS: 00813; J2250; J2704; J3010; J3490; J7120